=== PATIENT | female | born 1940 | race African-American/Black ===

== ENCOUNTER 2018-06-11 13:26 | Emergency (ER) | payer MEDICARE ==
[~2018-06-11] VITALS: Ht 165.1 cm; Wt 72.6 kg
[~2018-06-11 13:26] MED LIST: GLIP5TAB10 PO; HYDR-2145 PO
[2018-06-11] MEDS ORDERED: IPRATRPIUM/ALBUTEROL 0.5/2.5MG 3 ML NEBU. NEB ONE (14:15)
--- NOTE | 2018-06-11 14:18 | RAD ---
Exam performed: 2 views of the chest. Indication: COUGH FOR FOUR DAYS Date of Service: 06/11/2018 2:02 PM . Comparison : None available Findings: PA and lateral radiographs of the chest reveal a normal cardiomediastinal contour. The lungs are clear. No pleural fluid is seen. The visualized osseous structures are unremarkable. Impression: No acute cardiopulmonary process seen. Electronically signed by: Maxine Pozo MD (06/11/2018 2:13 PM) [facility]
[2018-06-11 14:26] LABS: BASO % 0 % (0-3); EOS % 1 % (0-3); HEMATOCRIT 31.6 % (36.0-47.0); HEMOGLOBIN 10.6 g/dL (12.0-15.5); LYMPH # 1.1 x10^3/uL (1.0-4.8); LYMPH % 32 % (24-48); MEAN CORPUSCULAR HEMOGLOBIN 29 pg (25-35); MEAN CORPUSCULAR HGB CONC 34 g/dL (31-37); MEAN CORPUSCULAR VOLUME 88 fL (79-100); MONO # 0.7 x10^3/uL (0.0-1.1); MONO % 19 % (0-9); NEUT # 1.6 x10^3uL (1.8-7.7); NEUT % 47 % (31-73); PLATELET COUNT 126 x10^3/uL (140-400); RED BLOOD COUNT 3.61 x10^6/uL (3.50-5.40); RED CELL DISTRIBUTION WIDTH 13.7 % (11.5-14.5); WHITE BLOOD COUNT 3.5 x10^3/uL (4.0-11.0)
--- NOTE | 2018-06-11 14:36 | PHYS DOC ---
Past Medical History Past Medical History: Diabetes-Type II, Hypertension Past Surgical History: Tubal ligation, Other Additional Past Surgical Histo: hernia repair, tubal Alcohol Use: None Drug Use: None Adult General Chief Complaint Chief Complaint: COUGH HPI HPI Patient is a 77 year old [f__sex] who presents with [] Review of Systems Review of Systems Constitutional: Denies fever or chills [] Eyes: Denies change in visual acuity, redness, or eye pain [] HENT: Denies nasal congestion or sore throat [] Respiratory: Denies cough or shortness of breath [] Cardiovascular: No additional information not addressed in HPI [] GI: Denies abdominal pain, nausea, vomiting, bloody stools or diarrhea [] : Denies dysuria or hematuria [] Musculoskeletal: Denies back pain or joint pain [] Integument: Denies rash or skin lesions [] Neurologic: Denies headache, focal weakness or sensory changes [] Endocrine: Denies polyuria or polydipsia [] All other systems were reviewed and found to be within normal limits, except as documented in this note. Current Medications Current Medications Current Medications Medications (Trade) Dose Ordered Sig/Hansa Start Time Stop Time Status Last Admin Dose Admin Albuterol/ Ipratropium (Duoneb) 3 ml 1X ONCE 06/11/18 14:15 06/11/18 14:16 DC 06/11/18 14:22 3 ML Sodium Chloride 1,000 ml @ 1,000 mls/hr 1X ONCE 06/11/18 15:15 06/11/18 16:14 UNV Allergies Allergies Allergies Coded Allergies Type Severity Reaction Last Updated Verified aspirin Allergy Unknown "i dont know it was along time ago" 09/13/13 Yes Physical Exam Physical Exam Constitutional: Well developed, well nourished, no acute distress, non-toxic appearance. [] HENT: Normocephalic, atraumatic, bilateral external ears normal, oropharynx moist, no oral exudates, nose normal. [] Eyes: PERRLA, EOMI, conjunctiva normal, no discharge. [] Neck: Normal range of motion, no tenderness, supple, no stridor. [] Cardiovascular:Heart rate regular rhythm, no murmur [] Lungs & Thorax: Bilateral breath sounds clear to auscultation [] Abdomen: Bowel sounds normal, soft, no tenderness, no masses, no pulsatile masses. [] Skin: Warm, dry, no erythema, no rash. [] Back: No tenderness, no CVA tenderness. [] Extremities: No tenderness, no cyanosis, no clubbing, ROM intact, no edema. [] Neurologic: Alert and oriented X 3, normal motor function, normal sensory function, no focal deficits noted. [] Psychologic: Affect normal, judgement normal, mood normal. [] Current Patient Data Vital Signs Vital Signs Date Time Temp Pulse Resp B/P (MAP) Pulse Ox O2 Delivery O2 Flow Rate FiO2 06/11/18 14:22 97 Room Air 06/11/18 13:40 97.9 88 19 145/70 (95) 97.9 Lab Values Laboratory Tests Test 06/11/18 14:15 White Blood Count 3.5 x10^3/uL (4.0-11.0) L Red Blood Count 3.61 x10^6/uL (3.50-5.40) Hemoglobin 10.6 g/dL (12.0-15.5) L Hematocrit 31.6 % (36.0-47.0) L Mean Corpuscular Volume 88 fL (79-100) Mean Corpuscular Hemoglobin 29 pg (25-35) Mean Corpuscular Hemoglobin Concent 34 g/dL (31-37) Red Cell Distribution Width 13.7 % (11.5-14.5) Platelet Count 126 x10^3/uL (140-400) L Neutrophils (%) (Auto) 47 % (31-73) Lymphocytes (%) (Auto) 32 % (24-48) Monocytes (%) (Auto) 19 % (0-9) H Eosinophils (%) (Auto) 1 % (0-3) Basophils (%) (Auto) 0 % (0-3) Neutrophils # (Auto) 1.6 x10^3uL (1.8-7.7) L Lymphocytes # (Auto) 1.1 x10^3/uL (1.0-4.8) Monocytes # (Auto) 0.7 x10^3/uL (0.0-1.1) Eosinophils # (Auto) 0.0 x10^3/uL (0.0-0.7) Basophils # (Auto) 0.0 x10^3/uL (0.0-0.2) Platelet Estimate Pending Sodium Level 136 mmol/L (136-145) Potassium Level 3.8 mmol/L (3.5-5.1) Chloride Level 102 mmol/L (98-107) Carbon Dioxide Level 30 mmol/L (21-32) Anion Gap 4 (6-14) L Blood Urea Nitrogen 22 mg/dL (7-20) H Creatinine 1.3 mg/dL (0.6-1.0) H Estimated GFR (Cockcroft-Gault) 48.2 BUN/Creatinine Ratio 17 (6-20) Glucose Level 270 mg/dL (70-99) H Calcium Level 9.4 mg/dL (8.5-10.1) Total Bilirubin 0.8 mg/dL (0.2-1.0) Aspartate Amino Transferase (AST) 24 U/L (15-37) Alanine Aminotransferase (ALT) 19 U/L (14-59) Alkaline Phosphatase 116 U/L (46-116) Total Protein 7.7 g/dL (6.4-8.2) Albumin 3.5 g/dL (3.4-5.0) Albumin/Globulin Ratio 0.8 (1.0-1.7) L Laboratory Tests 06/11/18 14:15 Laboratory Tests 06/11/18 14:15 EKG EKG [] Radiology/Procedures Radiology/Procedures []Signed PATIENT: PAUL PRUITT ACCOUNT: [id number] : 1940 LOCATION: ER AGE: 77 SEX: F EXAM STATUS: REG ER ORD. PHYSICIAN: SEBASTIÁN JACOBSON APRN REASON: cough, soa PROCEDURE: CHEST PA & LATERAL Exam performed: 2 views of the chest. Indication: COUGH FOR FOUR DAYS Date of Service: 06/11/2018 2:02 PM . Comparison : None available Findings: PA and lateral radiographs of the chest reveal a normal cardiomediastinal contour. The lungs are clear. No pleural fluid is seen. The visualized osseous structures are unremarkable. Impression: No acute cardiopulmonary process seen. Electronically signed by: Maxine Pozo MD (06/11/2018 2:13 PM) [facility] DICTATED and SIGNED BY: MAXINE POZO MD DATE: 06/11/18 1412 Course & Med Decision Making Course & Med Decision Making Pertinent Labs and Imaging studies reviewed. (See chart for details) [] Dragon Disclaimer Dragon Disclaimer This electronic medical record was generated, in whole or in part, using a voice recognition dictation system. Departure Departure Impression: Primary Impression: Bronchitis Disposition: 01 HOME, SELF-CARE Condition: STABLE Referrals: SERJIO GREENWOOD MD (PCP) Patient Instructions: Acute Bronchitis Additional Instructions: Take your medications as directed. Increase fluids and rest. You may take over- the-counter cough and cold medication for symptom relief. If worsening follow- up with your primary care provider or return to the emergency department. Scripts Albuterol Sulfate (Proair Hfa) 8.5 Gm Hfa.aer.ad 1 PUFF INH PRN Q6HRS PRN for SHORTNESS OF BREATH, #1 INHALER Prov: SEBASTIÁN JACOBSON APRN 06/11/18 Prednisone (PREDNISONE) 50 Mg Tablet 1 TAB PO DAILY for bronchitis, #5 TAB Prov: SEBASTIÁN JACOBSON APRN 06/11/18 Azithromycin (ZITHROMAX) 250 Mg Tablet 1 PKG PO UD for cough, #1 PKG Prov: SEBASTIÁN JACOBSON UK[employer]IVER 06/11/18 SEBASTIÁN JACOBSON APRN Jun 11, 2018 14:36
[2018-06-11 14:37] LABS: CALCIUM 9.4 mg/dL (8.5-10.1); CREATININE 1.3 mg/dL (0.6-1.0); GFR 48.2; POTASSIUM 3.8 mmol/L (3.5-5.1)
[2018-06-11 14:43] LABS: ALBUMIN 3.5 g/dL (3.4-5.0); ALBUMIN/GLOBULIN RATIO 0.8 (1.0-1.7); TOTAL BILIRUBIN 0.8 mg/dL (0.2-1.0); TOTAL PROTEIN 7.7 g/dL (6.4-8.2)
[2018-06-11 15:00] VITALS: BP 144/67
[2018-06-11] MEDS ORDERED: IV NORMAL SALINE 1000ML BAG 1,000 ML IV ONE (15:15)
[2018-06-11] MEDS ORDERED: PRED50TA PO (15:18)
[2018-06-11] MEDS ORDERED: AZIT250T PO (15:18)
[2018-06-11] MEDS ORDERED: ALBU2.5V8 INH (15:20)
[2018-06-11 15:53] LABS: % ATYL 10 % (0-0); % BANDS 6 % (0-9); % BASOS 1 % (0-3); % LYMPHS 25 % (24-48); % MONOS 16 % (0-10); % SEGS 42 % (35-66); PLT ESTIMATE DECREASED (ADEQUATE)
== END 2018-06-11 15:35 | disposition home or self-care (01) ==
LOC: ER 13:26
DX: J40 Bronchitis, not specified as acute or chronic (principal); I10 Essential (primary) hypertension; E11.9 Type 2 diabetes mellitus without complications; Z88.6 Allergy status to analgesic agent
CPT/HCPCS: 36415; 71046; 80053; 85007; 85025; 94640; 99284; J7620

== ENCOUNTER → 2020-02-06 | Outpatient (CLI) | payer OTHER, MEDICAID ==
[~2020-02-06] MED LIST changes: +ALBU2.5V8 INH; +AZIT250T PO; +PRED50TA PO
--- NOTE | 2020-02-07 08:43 | KCIC ---
C-spine 4 views INDICATION: Neck pain for months after trauma. COMPARISON: None currently available: AP, lateral, swimmer's lateral, and odontoid views of the cervical spine were obtained, showing very subtle anterolisthesis of C4-C5 and retrolisthesis of C6 on C7. Vertebral body heights are preserved but the bones are demineralized. Facet hypertrophic changes are present in the mid cervical spine. No acute fracture is identified. The odontoid is not well-visualized on either odontoid view obtained. It is unremarkable on the lateral view. No prevertebral soft tissue swelling is apparent. IMPRESSION: C-spine facet degenerative changes with no acute or aggressive appearing osseous lesions seen. The odontoid is not well-visualized on the odontoid view. Additional follow-up imaging can be pursued with follow-up C-spine radiographs or CT as clinically warranted. L-spine 3 views INDICATION: Low back pain at multiple sites. 4 months after trauma. COMPARISON: None currently available FINDINGS: AP lateral and coned-down lateral views of the lumbar spine obtained in the standing position show mild exaggeration of normal lumbar lordosis but no listhesis. Vertebral body heights are preserved although the bones are demineralized. Multilevel facet hypertrophic changes are present. The discs show mild narrowing at L1-L2, L2-L3 and at L5-S1. Visualized sacroiliac joints and hips are unremarkable. Soft tissues show pelvic phleboliths and minimal calcification in the abdominal aorta. IMPRESSION: L spine mild degenerative changes with no malalignment or fracture. Electronically signed by: Jim Raza MD (02/07/2020 8:40 AM) [id number]
== END | disposition home or self-care (01) ==
LOC: KCIC 12:54
PROVIDERS: ATTEND Family Medicine
DX: M47.812 Spondylosis without myelopathy or radiculopathy, cervical region (principal); M43.12 Spondylolisthesis, cervical region
CPT/HCPCS: 72040; 72100